=== PATIENT | female | born 1960 | race Caucasian/White ===

== ENCOUNTER 2017-10-27 19:29 | Emergency (ER) | payer MEDICARE | END 2017-10-27 19:53 | disposition home or self-care (01) | LOC: D.ER 19:29 | DX: R04.0 Epistaxis (principal) ==

== ENCOUNTER → 2017-12-22 08:27 | Outpatient (CLI) | payer MEDICAID | END | disposition home or self-care (01) | LOC: D.CT 08:27 | DX: R10.31 Right lower quadrant pain (principal) ==

== ENCOUNTER 2018-01-04 19:00 | Outpatient (CLI) | payer OTHER | END 2018-01-04 23:59 | disposition home or self-care (01) | LOC: D.MAMMO 19:00 | DX: Z12.31 Encounter for screening mammogram for malignant neoplasm of breast (principal) ==

== ENCOUNTER 2018-02-12 08:00 | Outpatient (CLI) | payer OTHER | END 2018-02-12 08:01 | disposition home or self-care (01) | LOC: D.MAMMO 08:00 | DX: R92.8 Other abnormal and inconclusive findings on diagnostic imaging of breast (principal) ==

== ENCOUNTER → 2019-01-07 10:42 | Outpatient (CLI) | payer MEDICARE ==
[~2019-01-07 10:42] MED LIST: GLUCOPHAGE500 MG PO; JANUVIA100 MG PO; JARDIANCE25 MG PO
[2019-01-08 06:08] LABS: HEPATITIS C ANTIBODY <0.1 (0.0-0.9)
[2019-01-21 06:42] VITALS: BMI 41.2
== END | disposition home or self-care (01) ==
LOC: D.LAB 10:42 → D.US 11:30 → D.NM 12:00 → D.US 01-10 10:30
PROVIDERS: ATTEND Internal Medicine Gastroenterology
DX: K76.0 Fatty (change of) liver, not elsewhere classified (principal); R10.9 Unspecified abdominal pain

== ENCOUNTER → 2019-01-12 08:53 | Outpatient (CLI) | payer MEDICARE ==
[2019-01-12 10:04] LABS: BASOPHILS 0.3 % (0-2); EOSINOPHILS 2.7 % (0-7); HEMATOCRIT 43.2 % (36.0-48.0); IMMATURE GRANULOCYTES 0.3 % (0-5); LYMPHOCYTES 35.4 % (15-50); MCH 30.7 pg (26.0-34.0); MCHC 34.7 g/dL (31.0-37.0); MCV 88.3 fL (80.0-100.0); MEAN PLATELET VOLUME 10.4 fL (7.4-10.4); MONOCYTES 5.9 % (2-11); NEUTROPHILS 55.4 % (40-80); PLATELET COUNT 156 10x3/uL (130-400); RBC 4.89 10x6/uL (4.00-5.40); RDW 14.2 % (11.5-14.5); WBC 6.3 10x3/uL (4.8-10.8)
[2019-01-12 10:33] LABS: % SATURATION 16 % (15-55); IRON 65 ug/dl (35-150); TOTAL IRON BIND CAPACITY 383 ug/dl (260-445); UNSAT IRON BIND CAPACITY 318 ug/dl (150-375)
[2019-01-12 10:34] LABS: ALKALINE PHOSPHATASE 110 U/L (46-116); ALT (SGPT) 58 U/L (10-68); BILIRUBIN - DIRECT 0.09 mg/dL (0.00-0.30); BILIRUBIN - INDIRECT 0.27 mg/dL (0.00-1.00); BILIRUBIN - TOTAL 0.36 mg/dL (0.2-1.3); CALCIUM 9.6 mg/dL (8.5-10.1); CARBON DIOXIDE 25.3 mmol/L (21.0-32.0); CHLORIDE - SERUM 105 mmol/L (98-107); CHOL - HDL RATIO 5.7 ratio (2.3-4.1); CHOLESTEROL, TOTAL 177 mg/dL (0-200); CREATININE - SERUM 0.8 mg/dL (0.6-1.3); FERRITIN 121 ng/mL (3-244); GAMMA GT 58 U/L (5-85); HDL CHOLESTEROL 31 mg/dL (32-96); LDL CHOLESTEROL 104 mg/dL (0-100); LDL-HDL RATIO 3.4 ratio (1.5-3.5); POTASSIUM - SERUM 3.8 mmol/L (3.5-5.1); PROTEIN - SERUM 8.3 g/dL (6.4-8.2); SODIUM 142 mmol/L (136-145); TRIGLYCERIDE 213 mg/dL (30-200); UREA NITROGEN 11 mg/dL (7-18); eGFR NON AFRICAN AMERICAN 78 mL/min (90-120)
[2019-01-12 10:36] LABS: CALC OSMOLALITY 287 mosm/kg (275-300); GLUCOSE 214 mg/dL (74-106)
[2019-01-12 11:01] LABS: INR 1.09 (0.85-1.17); PROTIME 13.6 SECONDS (11.6-15.0)
[2019-01-13 07:14] LABS: HAPTOGLOBIN 114 mg/dL (34-200)
[2019-01-13 09:10] LABS: ALPHA FETOPROTEIN -(TUMOR MRK) 1.7 ng/mL (0.0-8.3)
[2019-01-13 12:10] LABS: ANA REFLEX - DIRECT Negative (Negative)
[2019-01-15 15:09] LABS: MITOCHONDRIAL ANTIBODY 42.9 Units (0.0-20.0); SMOOTH MUSCLE ABS (ACTIN) 13 Units (0-19)
[2019-01-21 06:42] VITALS: BMI 41.2
== END | disposition home or self-care (01) ==
LOC: D.LAB 08:53
PROVIDERS: ATTEND Internal Medicine Gastroenterology
DX: K76.0 Fatty (change of) liver, not elsewhere classified (principal); R74.8 Abnormal levels of other serum enzymes

== ENCOUNTER 2019-01-21 05:32 | Outpatient (CLI) | payer MEDICARE ==
[~2019-01-21] VITALS: Ht 154.9 cm; Wt 99.1 kg
[2019-01-21 05:56] LABS: BASOPHILS 0.4 % (0-2); EOSINOPHILS 2.7 % (0-7); HEMATOCRIT 44.5 % (36.0-48.0); HEMOGLOBIN 15.2 g/dL (12-16); IMMATURE GRANULOCYTES 0.3 % (0-5); MCH 30.5 pg (26.0-34.0); MCHC 34.2 g/dL (31.0-37.0); MCV 89.4 fL (80.0-100.0); MEAN PLATELET VOLUME 10.5 fL (7.4-10.4); MONOCYTES 6.3 % (2-11); NEUTROPHILS 55.3 % (40-80); PLATELET COUNT 175 10x3/uL (130-400); RBC 4.98 10x6/uL (4.00-5.40); RDW 14.4 % (11.5-14.5); WBC 8.9 10x3/uL (4.8-10.8)
[2019-01-21 06:10] LABS: INR 1.03 (0.85-1.17)
[2019-01-21 06:11] LABS: APTT 43.8 SECONDS (22.8-39.4)
[2019-01-21 06:39] LABS: ANION GAP 17.6 mmol/L (8-16); CALCIUM 9.6 mg/dL (8.5-10.1); CARBON DIOXIDE 25.2 mmol/L (21.0-32.0); POTASSIUM - SERUM 3.8 mmol/L (3.5-5.1)
[2019-01-21] MEDS ORDERED: JARDIANCE25 MG PO (06:39)
[2019-01-21] MEDS ORDERED: GLUCOPHAGE500 MG PO (06:39)
[2019-01-21] MEDS ORDERED: JANUVIA100 MG PO (06:40)
[2019-01-21 06:42] VITALS: BP 133/85; Ht 154.9 cm; Wt 99.1 kg
--- NOTE | 2019-01-21 09:49 | NUR ---
0914-REC'D FROM [facility], AWAKE AND ALERT DENIES PAIN AT THIS TIME. DRESSING TO LEFT SIDE CDI. VSS. FAMILY AT BEDSIDE,
--- NOTE | 2019-01-21 11:59 | NUR ---
1110-DISCHARGE CRITERIA MET.REVIEWED DISCHARGE INSTRUCTIONS WITH PT AND MOTHER. NO FURTHER QUESTIONS OR CONCERNS. ESCORTED OUT VIA W/C WITH FAMILY TO DRIVE HOME
== END 2019-01-21 11:10 | disposition home or self-care (01) ==
LOC: D.SP 05:32 → D.CT 08:00 → D.SP 11:10
PROVIDERS: Specialist; ATTEND Internal Medicine Gastroenterology
DX: K76.0 Fatty (change of) liver, not elsewhere classified (principal); Z01.812 Encounter for preprocedural laboratory examination

== ENCOUNTER → 2020-08-29 08:42 | Outpatient (CLI) | payer MEDICARE ==
[~2020-08-29] VITALS: Ht 154.9 cm; Wt 99.3 kg
[2020-08-29 10:29] VITALS: Ht 154.9 cm; Wt 99.3 kg
== END | disposition home or self-care (01) ==
LOC: D.FANS 08-21 13:00
PROVIDERS: ATTEND Nurse Practitioner
DX: E11.65 Type 2 diabetes mellitus with hyperglycemia (principal)

== ENCOUNTER → 2020-09-18 09:29 | Outpatient (CLI) | payer MEDICARE ==
[2020-08-29 10:29] VITALS: BMI 41.4
[2020-09-18 10:03] LABS: BASOPHILS 0.2 % (0-2); HEMATOCRIT 43.8 % (36.0-48.0); HEMOGLOBIN 14.5 g/dL (12-16); IMMATURE GRANULOCYTES 0.2 % (0-5); LYMPHOCYTES 31.2 % (15-50); MCH 30.3 pg (26.0-34.0); MCHC 33.1 g/dL (31.0-37.0); MCV 91.6 fL (80.0-100.0); MEAN PLATELET VOLUME 10.7 fL (7.4-10.4); MONOCYTES 7.5 % (2-11); NEUTROPHIL ABS# 2.94 10x3/uL (1.56-6.13); NEUTROPHILS 53.9 % (40-80); PLATELET COUNT 145 10x3/uL (130-400); RBC 4.78 10x6/uL (4.00-5.40); RDW 14.2 % (11.5-14.5); WBC 5.5 10x3/uL (4.8-10.8)
[2020-09-18 10:09] LABS: INR 1.08 (0.85-1.17); PROTIME 12.9 SECONDS (11.6-15.0)
[2020-09-18 10:33] LABS: ALKALINE PHOSPHATASE 100 U/L (30-120); ALT (SGPT) 40 U/L (10-68); AMYLASE - SERUM 59 U/L (25-115); BILIRUBIN - DIRECT 0.14 mg/dL (0.00-0.30); BILIRUBIN - INDIRECT 0.22 mg/dL (0.00-1.00); BILIRUBIN - TOTAL 0.36 mg/dL (0.2-1.3); CALC OSMOLALITY 281 mosm/kg (275-300); CALCIUM 9.4 mg/dL (8.5-10.1); CARBON DIOXIDE 30.8 mmol/L (21.0-32.0); CHLORIDE - SERUM 102 mmol/L (98-107); CREATININE - SERUM 0.7 mg/dL (0.6-1.3); GLUCOSE 161 mg/dL (74-106); LIPASE 179 U/L (73-393); POTASSIUM - SERUM 4.3 mmol/L (3.5-5.1); PROTEIN - SERUM 7.5 g/dL (6.4-8.2); SODIUM 139 mmol/L (136-145); UREA NITROGEN 15 mg/dL (7-18); eGFR NON AFRICAN AMERICAN > 90 mL/min (90-120)
== END | disposition home or self-care (01) ==
LOC: D.US 08:00
PROVIDERS: ATTEND Internal Medicine Gastroenterology
DX: K76.0 Fatty (change of) liver, not elsewhere classified (principal); K74.00 Hepatic fibrosis, unspecified; R10.10 Upper abdominal pain, unspecified; R19.7 Diarrhea, unspecified

== ENCOUNTER 2020-10-03 17:00 | Outpatient (CLI) | payer MEDICARE ==
[2020-08-29 10:29] VITALS: BMI 41.4
== END 2020-10-03 23:59 | disposition home or self-care (01) ==
LOC: D.MAMMO 17:00
PROVIDERS: ATTEND Nurse Practitioner
DX: N63.25 Unspecified lump in the left breast, overlapping quadrants (principal)